=== PATIENT | male | born 1975 | race Caucasian/White ===

== ENCOUNTER → 2024-10-12 | Day surgery (SDC) | payer OTHER ==
[~2024-10-12] MED LIST: DUPIXENT200 MG/1.1 INJ; FENTANYL CITRATE/PF 100MCG/2 ML INJ ONE; LIDOCAINE HCL 2% LOCAL INJ 5 ML SDV VIAL INJ ONE; LISINOPRIL10 MG PO; MIDAZOLAM HCL 2 MG/2 ML VIAL ONE; MULTI-VITAMIN1 EACH PO; OMEPRAZOLE10 MG; PROBIOTIC FORM1 EAC1 PO; PROPOFOL IV EMULSION 10 MG/ML 20 ML VIAL ONE; VITAMIN C1000 MG PO; ZYRTEC10 M3 PO
[2024-10-12] MEDS: LACTATED RINGER'S 1,000 ML ONE (10:42)
[2024-10-12 12:05] VITALS: TEMP 98.4
[2024-10-12 12:25] VITALS: BP 136/95; PULSE 64; RESP 18; O2SAT 97
== END | disposition home or self-care (01) ==
LOC: OR 10:23
PROVIDERS: ATTEND Internal Medicine Gastroenterology
DX: R19.5 Other fecal abnormalities (principal); K63.5 Polyp of colon; K62.1 Rectal polyp; K64.8 Other hemorrhoids; K21.9 Gastro-esophageal reflux disease without esophagitis; Z71.3 Dietary counseling and surveillance; I10 Essential (primary) hypertension; Z71.89 Other specified counseling; R00.1 Bradycardia, unspecified; I44.0 Atrioventricular block, first degree; E78.5 Hyperlipidemia, unspecified; R05.9 Cough, unspecified; Z71.41 Alcohol abuse counseling and surveillance of alcoholic; Z88.0 Allergy status to penicillin; Z01.810 Encounter for preprocedural cardiovascular examination; Z79.899 Other long term (current) drug therapy; Z68.41 Body mass index [BMI] 40.0-44.9, adult; Z87.891 Personal history of nicotine dependence
CPT/HCPCS: 45385; 93005; J2003; J2250; J2704; J3010; J7121; 45378